=== PATIENT | female | born 1975 ===

== ENCOUNTER 2022-08-19 00:44 | Emergency (ER) | payer OTHER, SELFPAY ==
[2022-08-19] MEDS ORDERED: hydrOXYzine 25 MG TAB ONE (02:03)
[2022-08-19 02:14] LABS: Bilirubin Neg (Negative); Blood, Urine Negative (Negative); Clarity Clear (Clear); Glucose, Urine (Dipstick) Normal (Negative); Ketone, Urine Negative (Negative); Leukocyte Negative (Negative); Nitrite Negative (Negative); Protein, Urine (Dipstick) Negative (Neg-Trace); Urobilinogen Normal mg/dL (Less than 2)
== END 2022-08-19 03:16 | disposition home or self-care (01) ==
LOC: CSHERS 00:44
DX: I10 Essential (primary) hypertension (principal); F41.9 Anxiety disorder, unspecified; Z79.899 Other long term (current) drug therapy
CPT/HCPCS: 81003; 93005